=== PATIENT | female | born 1995 | race American Indian/Alaskan Native ===

== ENCOUNTER → 2017-12-27 | Emergency (ER) | payer OTHER ==
[2017-12-27 02:02] VITALS: BP 109/62
[2017-12-27 02:33] LABS: Basophils % (Auto) 0.6 % (0.0-1.8); Eosinophils # (Auto) 0.1 K/mm3 (0.0-0.4); Eosinophils % (Auto) 2.4 % (0.0-4.3); Hematocrit 34.2 % (30.3-42.9); Hemoglobin 11.5 gm/dl (10.1-14.3); Lymphocytes # (Auto) 1.1 K/mm3 (1.2-5.4); Lymphocytes % (Auto) 32.9 % (13.4-35.0); Mean Corpuscular HGB Conc 34 % (30-34); Mean Corpuscular Hemoglobin 29 pg (28-32); Mean Corpuscular Volume 86 fl (79-97); Monocytes # (Auto) 0.4 K/mm3 (0.0-0.8); Monocytes % (Auto) 10.5 % (0.0-7.3); Platelet Count 140 K/mm3 (140-440); Red Blood Count 3.96 M/mm3 (3.65-5.03); Red Cell Distribution Width 13.4 % (13.2-15.2)
[2017-12-27 02:45] LABS: BUN/Creatinine Ratio 12; Blood Urea Nitrogen 7 mg/dL (7-17); Calcium 9.3 mg/dL (8.4-10.2); Hemolysis Index 2
[2017-12-27 03:52] LABS: Bilirubin,Urine NEG (Negative); Blood,Urine SM (Negative); Color,Urine Yellow (Yellow); Mucus,Urine FEW /HPF; Protein,Urine <15 mg/dL mg/dL (Negative); Urobilinogen,Urine < 2.0 mg/dL (<2.0)
[2017-12-27 04:00] LABS: Amphetamine Screen,Urine PRESUMPTIVE NEGATIVE; Benzodiazepines Screen,Urine PRESUMPTIVE NEGATIVE; Cannabinoid Screen,Urine PRESUMPTIVE NEGATIVE; Cocaine Screen,Urine PRESUMPTIVE NEGATIVE; Methadone Screen,Urine PRESUMPTIVE NEGATIVE; Opiate Screen,Urine PRESUMPTIVE NEGATIVE
--- NOTE | 2017-12-27 07:20 | Emergency Department Report ---
ED Psych HPI - General Chief Complaint: Psych Stated Complaint: MH Time Seen by Provider: 12/27/17 07:10 Source: patient Mode of arrival: Ambulatory Limitations: No Limitations - History of Present Illness Initial Comments: Patient is a 22-year-old female that presents emergency room with complaints of being stressed out and depressed and having racing thoughts for many months. Patient states she would like to talk to a psychiatrist and a therapist here. Patient states that she has a a therapist and a psychiatrist at [facility] but all they want to do is put her on medications. Patient states all she wants to do is talk somebody to figure out why she still shows stone having such bad racing thoughts. Patient denies suicidal and homicidal ideations. Patient denies hallucinations. Patient states that she just needs some therapy. Patient denies any other physical complaints. Patient denies chest pain and shortness of breath. Patient denies abdominal pain. Patient denies headache. MD Complaint: feels depressed Associated Psychiatric Symptoms: depression, racing thoughts History of same: Yes Quality: constant Improves With: therapy Worsens With: medication Associated Symptoms: denies: confusion, headache, shortness of breath, nausea, vomiting, syncope, insomnia Treatments Prior to Arrival: none - Related Data Allergies Allergy/AdvReac Type Severity Reaction Status Date / Time wheat AdvReac Anaphylaxis Verified 12/27/17 01:57 ED Review of Systems ROS: Stated complaint: MH Other details as noted in HPI Constitutional: denies: chills, fever Eyes: denies: eye pain, eye discharge, vision change ENT: denies: ear pain, throat pain Respiratory: denies: cough, shortness of breath, wheezing Cardiovascular: denies: chest pain, palpitations Endocrine: no symptoms reported Gastrointestinal: denies: abdominal pain, nausea, diarrhea Genitourinary: denies: urgency, dysuria, discharge Musculoskeletal: denies: back pain, joint swelling, arthralgia Skin: denies: rash, lesions Neurological: denies: headache, weakness, paresthesias Psychiatric: depression. denies: anxiety, auditory hallucinations, visual hallucinations, homicidal thoughts, suicidal thoughts Hematological/Lymphatic: denies: easy bleeding, easy bruising ED Past Medical Hx - Past Medical History Previous Medical History?: Yes Hx Psychiatric Treatment: Yes (PTSD, bipolar, "I'm supposed to be getting tested for autism") - Surgical History Past Surgical History?: No - Family History Family history: no significant - Social History Smoking Status: Never Smoker Substance Use Type: None ED Physical Exam - General Limitations: No Limitations General appearance: alert, in no apparent distress - Head Head exam: Present: atraumatic, normocephalic - Eye Eye exam: Present: normal appearance - ENT ENT exam: Present: mucous membranes moist - Neck Neck exam: Present: normal inspection - Respiratory Respiratory exam: Present: normal lung sounds bilaterally. Absent: respiratory distress - Cardiovascular Cardiovascular Exam: Present: regular rate, normal rhythm. Absent: systolic murmur, diastolic murmur, rubs, gallop - GI/Abdominal GI/Abdominal exam: Present: soft, normal bowel sounds - Extremities Exam Extremities exam: Present: normal inspection - Back Exam Back exam: Present: normal inspection - Neurological Exam Neurological exam: Present: alert, oriented X3 - Psychiatric Psychiatric exam: Present: normal affect, normal mood - Skin Skin exam: Present: warm, dry, intact, normal color. Absent: rash ED Course Vital Signs 12/27/17 01:57 Temperature 98.1 F Pulse Rate 81 Respiratory 14 Rate Blood Pressure 109/62 O2 Sat by Pulse 100 Oximetry - Reevaluation(s) Reevaluation #1: Mental health consult. Mental health saw patient. Mental please patient is stable for discharge contract made with patient. Patient given referral recommendations. Patient stable from a medical psychological standpoint. Patient will be discharged home with discharge instructions and follow-up instructions. 12/27/17 12:20 ED Medical Decision Making - Lab Data Result diagrams: 12/27/17 02:16 12/27/17 02:16 - Medical Decision Making He is a 22-year-old female that presents emergency room with complaints of depression and stress and racing thoughts. Patient stable for discharge. Patient given outpatient resources. Patient to be discharged home to follow up with outpatient psychiatry and primary care. - Differential Diagnosis depression. Stress reaction. Critical care attestation.: If time is entered above; I have spent that time in minutes in the direct care of this critically ill patient, excluding procedure time. ED Disposition Clinical Impression: Depression Disposition: DC-01 TO HOME OR SELFCARE Is pt being admited?: No Does the pt Need Aspirin: No Condition: Stable Instructions: Depression (ED) Additional Instructions: Patient to follow-up with primary care in 3-5 days. Patient to follow-up with psychiatry in 2-4 days. Patient to return to ER if condition worsens. Referrals: KACEY HEADLEY MD [Primary Care Provider] - 3-5 Days Time of Disposition: 12:22
== END | disposition home or self-care (01) ==
LOC: EEVIPCON 01:10 → ED 01:10
DX: F31.9 Bipolar disorder, unspecified (principal); Z91.018 Allergy to other foods
CPT/HCPCS: 36415; 80048; 80307; 81001; 84703; 85025; 99285; G0480; 80320